=== PATIENT | female | born 2000 | race Hispanic/Latino ===

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

== ENCOUNTER 2022-01-23 16:57 | Emergency (ER) | payer OTHER, SELFPAY ==
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
[2022-01-23 17:43] VITALS: BP 103/66; PULSE 83; RESP 18; TEMP 36.7; O2SAT 98
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
[2022-01-23 19:25] VITALS: BP 128/84; PULSE 86; RESP 16; O2SAT 98
== END 2022-01-23 19:30 | disposition home or self-care (01) ==
PROVIDERS: Emergency Provider Nurse Practitioner Family
DX: S80.02XA Contusion of left knee, initial encounter (principal); S70.01XA Contusion of right hip, initial encounter; R07.89 Other chest pain; Z87.891 Personal history of nicotine dependence; V49.40XA Driver injured in collision with unspecified motor vehicles in traffic accident, initial encounter
CPT/HCPCS: 71046; 73502; 73562; 81025; 99284

== ENCOUNTER 2023-10-15 14:49 | Emergency (ER) | payer OTHER, SELFPAY ==
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
--- NOTE | ~2023-10-15 | XR_ITS ---
EXAMINATION: XR thoracic spine 3V DATE: 10/15/2023 16:14 INDICATION: Upper back pain. TECHNIQUE: 2 views of thoracic spine were obtained. COMPARISON: Chest 2 views 01/23/2022 FINDINGS: There is 6 degrees dextrocurvature of thoracic spine. Vertebral body heights and interverte bral disc heights are normal. IMPRESSION: 1. No etiology for the patient's symptoms. Reviewed, dictated and finalized at location A.
[2023-10-15 15:11] VITALS: BP 104/60; PULSE 82; RESP 16; TEMP 36.3; O2SAT 100
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
[2023-10-15 16:10] LABS: BEDSIDEPREGUCG Negative
== END 2023-10-15 17:19 | disposition home or self-care (01) ==
PROVIDERS: Emergency Provider Emergency Medicine
DX: S29.012A Strain of muscle and tendon of back wall of thorax, initial encounter (principal); S46.812A Strain of other muscles, fascia and tendons at shoulder and upper arm level, left arm, initial encounter; Z87.891 Personal history of nicotine dependence; V49.40XA Driver injured in collision with unspecified motor vehicles in traffic accident, initial encounter
CPT/HCPCS: 72040; 72072; 81025; 99283